=== PATIENT | female | born 1985 | race Caucasian/White ===

== ENCOUNTER 2023-10-06 03:15 | Emergency (ER) | payer SELFPAY ==
[~2023-10-06] VITALS: Ht 162.6 cm; Wt 77.0 kg
[2023-10-06] MEDS: MORPHINE SULFATE 4 MG/ML INJ (FOR IV/IM USE) IM ONE (04:21)
[2023-10-06] MEDS: ONDANSETRON HCL 4MG TABLET PO ONE (04:24)
[2023-10-06] MEDS: MORPHINE SULFATE 4 MG/ML INJ (FOR IV/IM USE) IV STA (06:38)
[2023-10-06] MEDS: SODIUM CHLORIDE 0.9% 1,000 ML IV ONE (06:38)
[2023-10-06] MEDS: ONDANSETRON HCL 4MG/2ML INJ IV STA (06:38)
[2023-10-06 07:05] VITALS: O2SAT 98
[2023-10-06] MEDS: MORPHINE SULFATE 4 MG/ML INJ (FOR IV/IM USE) IV ONE (07:15)
[2023-10-06] MEDS: ETOMIDATE 2MG/ML 10ML VIAL IV ONE (07:16)
[2023-10-06 08:06] VITALS: BP 118/70; PULSE 76; RESP 17; TEMP 98.1
[2023-10-06] MEDS: KETOROLAC 15MG/ML VIAL IV ONE (08:19)
[2023-10-06] MEDS ORDERED: IBUP-2028 MT (08:30)
[2023-10-06] MEDS ORDERED: HYDR-4001 MT (08:30)
== END 2023-10-06 08:49 | disposition home or self-care (01) ==
LOC: ER 03:48
DX: S52.592A Other fractures of lower end of left radius, initial encounter for closed fracture (principal); Z98.890 Other specified postprocedural states; Z90.89 Acquired absence of other organs; Z88.2 Allergy status to sulfonamides; Z88.8 Allergy status to other drugs, medicaments and biological substances; W18.39XA Other fall on same level, initial encounter; Y93.89 Activity, other specified; Y92.89 Other specified places as the place of occurrence of the external cause; Y99.8 Other external cause status
CPT/HCPCS: 73080; 73110; 25605; 96361; 96372; 96374; 96375; 99152; 99285; Q0162; J3490; J1885; J2405; J2270; J7030; Z7610